=== PATIENT | female | born 1970 | race Caucasian/White ===

== ENCOUNTER 2021-05-20 12:10 | Inpatient (IN) | payer OTHER ==
[~2021-05-20] VITALS: Ht 162.6 cm; Wt 68.0 kg
[~2021-05-20 12:10] MED LIST: BACTRIM DS TAB1 EACH PO; BUSPIRONE HCL10 MG; BUSPIRONE HCL10 MG PO; CARAFATE 1 GM TA1 GM PO; CELEXA40 MG PO; CIPROFLOXACIN500 M1 PO; COMPAZINE10 MG PO; DIPHENHIST50 MG PO; DOXYCYCLINE 10100 MG PO; IBUPROFEN 600600 M1 PO; IBUPROFEN 800800 M1 PO; KEFLEX500 MG PO; LEXAPRO 10 MG T10 M1; MACROBID 100 M100 M1 PO; MEDROLDOSEPACK PO; METHADONE HCL5 MG; METHADOSE40 M1; NOHOMEMEDICATIONS; PEPCID AC20 M1; PREDNISONE 10 M10 MG PO; PREDNISONE 20 M20 MG; PROTONIX40 MG PO; ROBAXIN 750 MG750 M1 PO; TOPAMAX 25 MG T25 M1; VISTARIL 25 MG25 M1 GT; VISTARIL 25 MG25 M1 PO
[2021-05-20 12:45] VITALS: BP 131/88
[2021-05-20] MEDS ORDERED: WELLBUTRIN 100100 MG PO (12:52)
[2021-05-20 14:07] LABS: URINE BILIRUBIN NEGATIVE (Negative); URINE BLOOD 3+ (Negative); URINE CLARITY CLEAR; URINE COLOR ORANGE; URINE GLUCOSE-RANDOM NEGATIVE (Negative); URINE KETONES NEGATIVE (Negative); URINE LEUKOCYTES-REFLEX 1+ (Negative); URINE PROTEIN TRACE (Negative); URINE SPECIFIC GRAVITY >= 1.030 (1.005-1.030)
[2021-05-20 14:16] LABS: URINE NITRITE-REFLEX POSITIVE (Negative)
[2021-05-20 14:27] LABS: BACTERIA-REFLEX 1-9 Few /HPF (None Seen); SQUAMOUS 4-10 Moderate /LPF (0-3); URINE RBC >20 Many /HPF (0-2); URINE WBC-REFLEX 0-5 Rare /HPF (0-5)
[2021-05-20 14:28] LABS: CRYSTALS None Seen /LPF (None Seen); HYALINE CASTS 0-3 Few /LPF (None Seen); MUCUS 0-3 Light strn/LPF (None Seen)
[2021-05-20 18:12] LABS: HEMATOCRIT 36.1 % (37.0-47.0); HEMOGLOBIN 12.5 gm/dL (12.0-15.0); MCH 31.9 pg (26.0-34.0); MCHC 34.5 g/dL (28.0-37.0); MCV 92.4 fL (80.0-100.0); MPV 9.1 fl. (7.2-11.1); NUCLEATED RBCS 0 /100WBC; PLATELET COUNT* 190 thou/uL (150-400); RBC 3.91 mil/uL (4.20-5.00); RDW-CV 13.7 % (10.5-14.5); WBC 9.2 thou/uL (4.0-11.0)
[2021-05-20 18:20] LABS: CREATININE 1.1 mg/dL (0.6-1.3); POTASSIUM 4.2 mmol/L (3.5-5.1)
[2021-05-20 18:24] LABS: ALBUMIN 4.2 g/dL (3.4-5.0); TOTAL BILIRUBIN 0.3 mg/dL (<0.1-1.0); TOTAL PROTEIN 7.5 g/dL (6.4-8.2)
[2021-05-20 18:53] LABS: ABSOLUTE LYMPHOCYTES 0.6 thou/uL (0.8-5.3); ABSOLUTE MONOCYTES 0.3 thou/uL (0.0-1.2); ABSOLUTE NEUTROPHILS 8.3 thou/uL (1.6-8.1); LARGE PLATELETS OCCASIONAL; PLATELET ESTIMATE ADEQUATE
[2021-05-20 20:45] VITALS: BP 154/80
[2021-05-20 20:46] VITALS: BP 154/80
[2021-05-21 00:29] VITALS: BP 104/54
[2021-05-21 04:03] VITALS: BP 104/54
[2021-05-21 07:00] VITALS: BP 101/62
[2021-05-21 12:32] VITALS: BP 103/69
[2021-05-21] MEDS ORDERED: UROCIT-K10 ME1 PO (13:30)
[2021-05-21] MEDS ORDERED: CEFDINIR300 MG PO (13:30)
[2021-05-21 13:42] VITALS: BP 103/69
== END 2021-05-21 13:31 | disposition home or self-care (01) | DRG 690 ==
LOC: M.ERS 12:10 → M.TBA-ER 18:49
PROVIDERS: Emergency Medicine Emergency Medical Services; ADMIT Internal Medicine; ATTEND Internal Medicine
PROC: BT1D1ZZ Fluoroscopy of Right Kidney, Ureter and Bladder using Low Osmolar Contrast (ICD-10-PCS; principal; 2021-05-21)
DX: N13.6 Pyonephrosis (principal); F41.9 Anxiety disorder, unspecified; Z20.822 Contact with and (suspected) exposure to COVID-19; Z90.49 Acquired absence of other specified parts of digestive tract; Z87.442 Personal history of urinary calculi; Z87.891 Personal history of nicotine dependence